=== PATIENT | male | born 1945 | race Caucasian/White ===

== ENCOUNTER 2017-10-16 23:36 | Emergency (ER) | payer MEDICARE, BC ==
[~2017-10-16] VITALS: Ht 165.1 cm; Wt 68.0 kg
[2017-10-16 23:39] VITALS: BP 206/91; PULSE 69; RESP 18; TEMP 98.8; O2SAT 100
[2017-10-17 03:44] VITALS: BP 185/87; PULSE 64; RESP 18; O2SAT 99
[2017-10-17] MEDS ORDERED: IBUP-1129 (03:47)
[2017-10-17] MEDS ORDERED: ASPI81TA23 PO (03:47)
[2017-10-17] MEDS ORDERED: NITROGLYCERIN 2% OINT 1 GM PACKET TOP ONE (04:30)
[2017-10-17] MEDS ORDERED: SODIUM CHLORIDE 0.9% FLUSH 10 ML FLUSH IVF PRN (04:30)
[2017-10-17] MEDS ORDERED: ASPIRIN 81 MG CHEW TAB PO ONE (04:30)
[2017-10-17] MEDS ORDERED: NITROGLYCERIN 0.4 MG SL 25 TABS/BTL SL ONE (04:30)
[2017-10-17 04:42] LABS: AUTOMATED NEUTROPHIL # 7.2 TH/MM3 (1.8-7.7); BASOPHIL % 0.3 % (0.0-2.0); EOSINOPHIL # 0.1 TH/MM3 (0-0.4); EOSINOPHIL % 0.9 % (0.0-4.0); HEMATOCRIT 40.1 % (39.0-51.0); MEAN CORPUSCULAR HEMOGLOBIN 32.4 PG (27.0-34.0); MEAN CORPUSCULAR HGB CONC 34.9 % (32.0-36.0); MEAN PLATELET VOLUME 7.6 FL (7.0-11.0); MONO % 10.7 % (0.0-8.0); NEUT % 77.1 % (16.0-70.0); PLATELET COUNT 238 TH/MM3 (150-450); RED BLOOD COUNT 4.31 MIL/MM3 (4.50-5.90); WHITE BLOOD COUNT 9.3 TH/MM3 (4.0-11.0)
--- NOTE | 2017-10-17 04:53 | PD ---
HPI Chief Complaint: Chest Pain Time Seen by Provider: 04:23 Travel History International Travel<30 days: No Contact w/Intl Traveler<30days: No Traveled to known affect area: No History of Present Illness HPI The patient is a 71 year old male who presents to the [facility] emergency department with a history of chest pain that began sometime on Sunday. It has been coming and going. The symptoms are vague because the patient has a history of memory problems from dementia. The patient's provides most of his history. The chest pain is in the center of his chest. It feels like being " hit with a baseball". He has had shortness of breath. The shortness of breath is worse with laying flat. He denies any prior history of myocardial infarction , DVT, or PE. He is currently visiting from [place]. He does not have a primary care physician locally. He does report having a history of atrial fibrillation, however he has been off of Coumadin for the last year and a half and off of sotalol for the last 3 years. The patient takes a low dose aspirin daily. On review of systems otherwise, the patient denies having any recent fevers, cough, congestion, neck pain, abdominal pain, vomiting, diarrhea, urinary symptoms, or neurologic symptoms. [facility] Past Medical History Narrative Medical The patient's past medical history is significant for atrial fibrillation, dementia, back pain, hip pain, prostate nodule s/p negative biopsy. Alzheimer's Disease: Yes (dementia) Atrial Fibrillation: Yes Diminished Hearing: No Tetanus Vaccination: Unknown Influenza Vaccination: No Past Surgical History Narrative Surgical The patient's past surgical history is significant for hip replacement left 5 years ago. Social History Alcohol Use: Yes (3x per week a beer) Tobacco Use: No Substance Use: No Allergies-Medications (Allergen,Severity, Reaction): Coded Allergies: No Known Allergies (Unverified , 10/17/17) Reported Meds & Prescriptions Reported Meds & Active Scripts Active Reported Motrin Ib (Ibuprofen) 200 Mg Tablet Aspirin EC (Aspirin) 81 Mg Tabdr 162 Mg PO DAILY Review of Systems Except as stated in HPI: all other systems reviewed are Neg General / Constitutional: No: Fever Eyes: No: Visual changes HENT: No: Headaches Cardiovascular: Positive: Chest Pain or Discomfort, Dyspnea on exertion Respiratory: Positive: Shortness of Breath, Orthopnea Gastrointestinal: No: Abdominal Pain Genitourinary: No: Dysuria Musculoskeletal: No: Pain Skin: No Rash Neurologic: No: Weakness Psychiatric: No: Depression Endocrine: No: Polydipsia Hematologic/Lymphatic: No: Easy Bruising Physical Exam Narrative General: The patient is a well-developed well-nourished male in no acute distress. Head and Neck exam: Head is normocephalic atraumatic. Eyes: EOMI, pupils are equal round and reactive to light. Nose: Midline septum with pink mucous membranes Mouth: Dentition unremarkable. Moist mucus membranes. Posterior oropharynx is not erythematous. No tonsillar hypertrophy. Uvula midline. Airway patent. Neck: No palpable lymphadenopathy. No nuchal rigidity. No thyromegaly. Cardiovascular: Regular rate and rhythm without murmurs, gallops, or rubs. No pulse deficit to the extremities on simultaneous auscultation and palpation of his radial artery. Lungs: Clear to auscultation bilaterally. No wheezes, rhonchi, or rales. Abdomen: Soft, without tenderness to palpation in all 4 quadrants of the abdomen. No guarding, rebound, or rigidity. Normal bowel sounds are audible. No tenderness on palpation of McBurney's point. Extremities: No clubbing, cyanosis, or edema. 2+ pulses in all 4 extremities. No calf tenderness on palpation. Back: No spinous process tenderness to palpation. No costovertebral angle tenderness to palpation. Neurologic Exam: Grossly nonfocal. Skin Exam: No rash noted. Intact skin that is warm and dry. Data Data Last Documented VS Vital Signs Date Time Temp Pulse Resp B/P (MAP) Pulse Ox O2 Delivery O2 Flow Rate FiO2 10/17/17 06:23 62 18 160/90 (113) 95 Room Air 10/16/17 23:39 98.8 Orders Orders B-Type Natriuretic Peptide (10/17/17 04:23) Ckmb (Isoenzyme) Profile (10/17/17 04:23) Complete Blood Count With Diff (10/17/17 04:23) Comprehensive Metabolic Panel (10/17/17 04:23) Magnesium (Mg) (10/17/17 04:23) Prothrombin Time / Inr (Pt) (10/17/17 04:23) Act Partial Throm Time (Ptt) (10/17/17 04:23) Troponin I (10/17/17 04:23) Lipase (10/17/17 04:23) Chest, Single Ap (10/17/17 04:23) Ecg Monitoring (10/17/17 04:23) Bilateral Bp Monitoring (10/17/17 04:23) Iv Access Insert/Monitor (10/17/17 04:23) Oximetry (10/17/17 04:23) Oxygen Administration (10/17/17 04:23) Aspirin Chew (Aspirin Chew) (10/17/17 04:30) Nitroglycerin 2% Oint (Nitroglycerin 2% (10/17/17 04:30) Sodium Chloride 0.9% Flush (Ns Flush) (10/17/17 04:30) Nitroglycerin Sl (Nitrostat Sl) (10/17/17 04:30) CKMB (10/17/17 04:15) CKMB% (10/17/17 04:15) Ct Pulmonary Angiogram (10/17/17 05:07) Aspirin Chew (Aspirin Chew) (10/17/17 05:45) Nitroglycerin 2% Oint (Nitroglycerin 2% (10/17/17 05:45) Nitroglycerin Sl (Nitrostat Sl) (10/17/17 05:45) Iohexol 350 Inj (Omnipaque 350 Inj) (10/17/17 05:54) Admit Order (Ed Use Only) (10/17/17 06:26) Labs Laboratory Tests Test 10/17/17 04:15 White Blood Count 9.3 TH/MM3 Red Blood Count 4.31 MIL/MM3 Hemoglobin 14.0 GM/DL Hematocrit 40.1 % Mean Corpuscular Volume 93.0 FL Mean Corpuscular Hemoglobin 32.4 PG Mean Corpuscular Hemoglobin Concent 34.9 % Red Cell Distribution Width 13.0 % Platelet Count 238 TH/MM3 Mean Platelet Volume 7.6 FL Neutrophils (%) (Auto) 77.1 % Lymphocytes (%) (Auto) 11.0 % Monocytes (%) (Auto) 10.7 % Eosinophils (%) (Auto) 0.9 % Basophils (%) (Auto) 0.3 % Neutrophils # (Auto) 7.2 TH/MM3 Lymphocytes # (Auto) 1.0 TH/MM3 Monocytes # (Auto) 1.0 TH/MM3 Eosinophils # (Auto) 0.1 TH/MM3 Basophils # (Auto) 0.0 TH/MM3 CBC Comment DIFF FINAL Differential Comment Prothrombin Time 10.4 SEC Prothromb Time International Ratio 1.0 RATIO Activated Partial Thromboplast Time 22.9 SEC Blood Urea Nitrogen 14 MG/DL Creatinine 0.88 MG/DL Random Glucose 99 MG/DL Total Protein 7.7 GM/DL Albumin 3.5 GM/DL Calcium Level 8.6 MG/DL Magnesium Level 2.2 MG/DL Alkaline Phosphatase 51 U/L Aspartate Amino Transf (AST/SGOT) 52 U/L Alanine Aminotransferase (ALT/SGPT) 19 U/L Total Bilirubin 0.8 MG/DL Sodium Level 136 MEQ/L Potassium Level 5.2 MEQ/L Chloride Level 104 MEQ/L Carbon Dioxide Level 26.4 MEQ/L Anion Gap 6 MEQ/L Estimat Glomerular Filtration Rate 86 ML/MIN Total Creatine Kinase 159 U/L Creatine Kinase MB 0.6 NG/ML Troponin I LESS THAN 0.02 NG/ML B-Type Natriuretic Peptide 107 PG/ML Lipase 85 U/L MDM Medical Decision Making Medical Screen Exam Complete: Yes Emergency Medical Condition: Yes Medical Record Reviewed: Yes Differential Diagnosis Acute coronary syndrome, versus pulmonary embolism, versus pneumonia, versus new onset congestive heart failure Narrative Course During the course of the patient's emergency department visit, the patient's history, examination, and differential diagnosis were reviewed with the patient. The patient was placed on a fiberline supervisor with oximetry and frequent blood pressure monitoring. The patient had IV access obtained and blood work sent for analysis. The patient had an EKG done on arrival. The patient's EKG reveals a sinus rhythm heart rate of 61, QRS duration is 137 ms, QTc 423 ms with a right bundle branch block noted. No acute ST segment elevation is noted. The patient was initially provided an additional 243 mg of aspirin p.o. Nitroglycerin sublingual 1 was administered, nitroglycerin 1 inch to the chest wall was applied. The patient's laboratory studies were reviewed and remarkable for A white count of 9.3, hemoglobin 14, platelets 238 with 77.1 neutrophils, monocytes 10.7, CMP is remarkable for a potassium of 5.2, GFR of 86, AST 52, cardiac enzymes within normal limits, BNP 107, lipase 85, PT 10.4, PTT 22.9. The patient's chest x- ray reveals no acute cardiopulmonary disease. A CTA to rule out PE was ordered. CTA reveals no point evidence of pulmonary embolism, coronary artery calcifications are present. The lungs are clear. The patient will be admitted to the chest pain center for rule out serial cardiac enzyme protocol followed by consideration of stress testing. The patient's results were discussed with the patient, including the plan of care. I explained that further testing and/ or monitoring is indicated based on the patient's history, examination, and/ or laboratory findings. Therefore, I recommended admission for additional evaluation. The patient expressed understanding and was agreeable with this plan. The patient was admitted to the hospital in stable condition and sent to a bed under the care of the chest pain center. Diagnosis Primary Impression: Chest pain, rule out acute myocardial infarction Admitting Information Admitting Physician Requests: Petra Prado MD Oct 17, 2017 04:53
[2017-10-17 05:01] LABS: ALBUMIN 3.5 GM/DL (3.4-5.0); ALT (GPT) 19 U/L (12-78); AST (GOT) 52 U/L (15-37); BICARBONATE 26.4 MEQ/L (21.0-32.0); BLOOD UREA NITROGEN 14 MG/DL (7-18); CALCIUM 8.6 MG/DL (8.5-10.1); CHLORIDE 104 MEQ/L (98-107); CREATININE 0.88 MG/DL (0.60-1.30); GLOMERULAR FILTRATION RATE 86 ML/MIN (>89); GLUCOSE,RANDOM 99 MG/DL (74-106); MAGNESIUM 2.2 MG/DL (1.5-2.5); SODIUM (NA) 136 MEQ/L (136-145)
[2017-10-17 05:02] LABS: ALKALINE PHOSPHATASE 51 U/L (45-117); TOTAL BILIRUBIN ADULT 0.8 MG/DL (0.2-1.0); TROPONIN I LESS THAN 0.02 NG/ML (0.02-0.05)
[2017-10-17 05:04] LABS: PROTHROMBIN TIME - PATIENT 10.4 SEC (9.8-11.6)
[2017-10-17 05:05] LABS: TOTAL PROTEIN 7.7 GM/DL (6.4-8.2)
--- NOTE | 2017-10-17 05:30 | RADRPT ---
EXAM DATE/TIME: 10/17/2017 04:48 [facility] COMPARISON: No previous studies available for comparison. INDICATIONS : Short of breath, tightness in chest. MEDICAL HISTORY : None. SURGICAL HISTORY : None. ENCOUNTER: Initial ACUITY: 1 day PAIN SCORE: 3/10 LOCATION: Bilateral chest FINDINGS: A single view of the chest demonstrates the lungs to be symmetrically aerated without evidence of mas s, infiltrate or effusion. The cardiomediastinal contours are unremarkable. Mild atherosclerotic berta nges are present in the aorta. Degenerative changes are noted in the left glenohumeral joint. Osseou s structures are intact. CONCLUSION: No acute disease. Gunnar Lyn MD on October 17, 2017 at 5:29 Board Certified Radiologist. This report was verified electronically.
[2017-10-17] MEDS ORDERED: NITROGLYCERIN 0.4 MG SL 25 TABS/BTL SL PRN (05:45)
[2017-10-17] MEDS ORDERED: ASPIRIN 81 MG CHEW TAB CHEW ONE (05:45)
[2017-10-17] MEDS ORDERED: NITROGLYCERIN 2% OINT 1 GM PACKET TOPICAL ONE (05:45)
[2017-10-17] MEDS ORDERED: IOHEXOL 350 MG/ML 10 ML VIAL (for RAD DIAG) IVCONTRAST ONE (05:54)
--- NOTE | 2017-10-17 06:10 | RADRPT ---
EXAM DATE/TIME: 10/17/2017 05:51 [facility] COMPARISON: CHEST SINGLE AP, October 17, 2017, 4:48. INDICATIONS : Chest pain and shortness of breath. IV CONTRAST: 75 cc Omnipaque 350 (iohexol) IV RADIATION DOSE: 12.12 CTDIvol (mGy) MEDICAL HISTORY : Dementia. SURGICAL HISTORY : None. ENCOUNTER: Initial ACUITY: 1 day PAIN SCALE: 4/10 LOCATION: Bilateral chest TECHNIQUE: Volumetric scanning of the chest was performed using a pulmonary embolism protocol MIP images were re constructed. Using automated exposure control and adjustment of the mA and/or kV according to patien t size, radiation dose was kept as low as reasonably achievable to obtain optimal diagnostic quality images. DICOM format image data is available electronically for review and comparison. Follow-up recommendations for detected pulmonary nodules are based at a minimum on nodule size and pa tient risk factors according to Fleischner Society Guidelines. FINDINGS: PULMONARY ARTERIES: No filling defects are seen in the pulmonary arteries through the segmental level. LUNGS: There is no consolidation or pneumothorax . No concerning pulmonary nodule is visualized. PLEURAE: There is no pleural thickening or pleural effusion. MEDIASTINUM: There is good visualization of the great vessels of the middle mediastinum. No evidence of mediastin al or hilar adenopathy/mass. Coronary artery calcifications are present. MUSCULOSKELETAL: Within normal limits for patient age. MISCELLANEOUS: The visualized upper abdominal organs demonstrate no acute abnormality. CONCLUSION: 1. No evidence of pulmonary embolism. 2. Coronary artery calcifications are present. 3. The lungs are clear. Gunnar Lyn MD on October 17, 2017 at 6:07 Board Certified Radiologist. This report was verified electronically.
[2017-10-17 06:23] VITALS: BP 160/90; PULSE 62; RESP 18; O2SAT 95
[2017-10-17] MEDS ORDERED: SODIUM CHLORIDE 0.9% FLUSH 10 ML FLUSH IV FLUSH PRN (07:00)
[2017-10-17] MEDS ORDERED: ACETAMINOPHEN 500 MG CPLT PO PRN (07:00)
[2017-10-17] MEDS ORDERED: ONDANSETRON HCL 4 MG/2 ML VIAL IV PUSH PRN (07:00)
[2017-10-17 08:59] LABS: TROPONIN I LESS THAN 0.02 NG/ML (0.02-0.05)
[2017-10-17] MEDS ORDERED: SODIUM CHLORIDE 0.9% FLUSH 10 ML FLUSH IV FLUSH SCH (09:00)
[2017-10-17] MEDS ORDERED: LIDOCAINE VISCOUS 2% SOLN 15 ML UDC PO ONE (09:30)
[2017-10-17] MEDS ORDERED: amLODIPine BESYLATE 5 MG TAB PO ONE (09:30)
[2017-10-17] MEDS ORDERED: ALUMINUM/MAGNESIUM/SIMETH 30 ML CUP PO ONE (09:30)
[2017-10-17] MEDS ORDERED: ATROPINE/SCOPOLAM/HYOSCYAM/PB ELIXIR 10 ML CUP PO ONE (10:00)
[2017-10-17 10:25] VITALS: BP 123/76; PULSE 80; RESP 15; O2SAT 98
--- NOTE | 2017-10-17 10:27 | HHI.HP ---
HPI Primary Care Physician No Primary Care Physician Chief Complaint Chest pain History of Present Illness This is a 71-year-old male with history of paroxysmal atrial fibrillation and denies CAD, hypertension, hyperlipidemia, and diabetes with a complaint of chest discomfort. Patient states that while he was walking on the beach yesterday he developed a mild discomfort in the center of his chest. Continue to worsen as the day went on. States discomfort is somewhat still there. It is nowhere near as bad . Denies associated shortness of breath, nausea, or diaphoresis. Has not had a discomfort like this in the past. Cannot recall prior cardiac workup but also states he has memory loss issues. States he is here for 3 months from [place]. Review of Systems General: Patient denies fevers, chills recent, and recent travel HEENT: Patient denies headache, sore throat, difficulty swallowing. Cardiovascular: Has the chest discomfort as mentioned above. Denies sensation of heart beating rapidly or irregularly. No syncope. Denies diaphoresis. Respiratory: Denies shortness of breath or inspirational chest discomfort. Denies coughing wheezing or hemoptysis. GI: Patient denies nausea, vomiting, diarrhea, abdominal pain, bloody stools. Musculoskeletal: Patient denies joint pain or edema. Denies calf pain or edema. Neurovascular: Patient denies numbness, tingling, weakness in extremities. Denies headache. Endocrine: Denies polyuria and polydipsia. Hematologic: Denies easy bruising. Skin: Denies rash or itching. Past Family Social History Allergies: Coded Allergies: No Known Allergies (Unverified , 10/17/17) Past Medical History Paroxysmal atrial fibrillation. Denies hypertension, hyperlipidemia, diabetes, and known CAD. Past Surgical History Hip replacement 5 years ago. Reported Medications Reported Meds & Active Scripts Active Reported Motrin Ib (Ibuprofen) 200 Mg Tablet Aspirin EC (Aspirin) 81 Mg Tabdr 162 Mg PO DAILY Active Ordered Medications Current Medications Medications (Trade) Dose Ordered Sig/Ernesto Route Start Time Stop Time Status Last Admin (Nitrostat Sl) 0.4 mg Q5M PRN SL 10/17/17 05:45 (NS Flush) 2 ml UNSCH PRN IV FLUSH 10/17/17 07:00 (NS Flush) 2 ml BID IV FLUSH 10/17/17 09:00 10/17/17 09:24 (Tylenol) 500 mg Q4H PRN PO 2/21/18 07:00 (Zofran Inj) 4 mg Q6H PRN IV PUSH 10/17/17 07:00 Family History He is not aware of his family medical history. Social History Non-smoker. Has an occasional beer. Denies illicit drugs. He is . Physical Exam Vital Signs Vital Signs Date Time Temp Pulse Resp B/P (MAP) Pulse Ox O2 Delivery O2 Flow Rate FiO2 10/17/17 06:23 62 18 160/90 (113) 95 Room Air 10/17/17 03:44 64 18 185/87 (119) 99 Room Air 10/17/17 03:44 64 98 Room Air 10/16/17 23:39 98.8 69 18 206/91 (129) 100 Physical Exam GENERAL: This is a well-nourished, well-developed patient, in no apparent distress. Patient speaks in clear complete sentences. Patient is pleasant. HEENT: Head is atraumatic and normocephalic. Neck is supple without lymphadenopathy and trachea is midline. No JVD or carotid bruits. CARDIOVASCULAR: Regular rate and rhythm without murmurs, gallops, or rubs. RESPIRATORY: Clear to auscultation. Breath sounds equal bilaterally. No wheezes , rales, or rhonchi. Chest wall is nontender. No use of accessory muscles. GASTROINTESTINAL: Abdomen is nontender, nondistended. Abdomen soft. No obvious pulsatile mass or bruit. No CVA tenderness. Strong femoral pulses bilaterally. Normal bowel sounds in all quadrants. MUSCULOSKELETAL: Patient is moving upper and lower extremities freely. No calf tenderness or edema, no Homans sign. Strong pulses in upper and lower extremities. NEUROLOGICAL: Patient is alert and oriented. Cranial nerves 2-12 are grossly intact. No focal deficits and speech is clear. SKIN: No rash and turgor is normal. Laboratory Laboratory Tests Test 10/17/17 04:15 10/17/17 07:20 White Blood Count 9.3 Red Blood Count 4.31 Hemoglobin 14.0 Hematocrit 40.1 Mean Corpuscular Volume 93.0 Mean Corpuscular Hemoglobin 32.4 Mean Corpuscular Hemoglobin Concent 34.9 Red Cell Distribution Width 13.0 Platelet Count 238 Mean Platelet Volume 7.6 Neutrophils (%) (Auto) 77.1 Lymphocytes (%) (Auto) 11.0 Monocytes (%) (Auto) 10.7 Eosinophils (%) (Auto) 0.9 Basophils (%) (Auto) 0.3 Neutrophils # (Auto) 7.2 Lymphocytes # (Auto) 1.0 Monocytes # (Auto) 1.0 Eosinophils # (Auto) 0.1 Basophils # (Auto) 0.0 CBC Comment DIFF FINAL Differential Comment Prothrombin Time 10.4 Prothromb Time International Ratio 1.0 Activated Partial Thromboplast Time 22.9 Blood Urea Nitrogen 14 Creatinine 0.88 Random Glucose 99 Total Protein 7.7 Albumin 3.5 Calcium Level 8.6 Magnesium Level 2.2 Alkaline Phosphatase 51 Aspartate Amino Transf (AST/SGOT) 52 Alanine Aminotransferase (ALT/SGPT) 19 Total Bilirubin 0.8 Sodium Level 136 Potassium Level 5.2 Chloride Level 104 Carbon Dioxide Level 26.4 Anion Gap 6 Estimat Glomerular Filtration Rate 86 Total Creatine Kinase 159 65 Creatine Kinase MB 0.6 Troponin I LESS THAN 0.02 LESS THAN 0.02 B-Type Natriuretic Peptide 107 Lipase 85 Result Diagram: 10/17/17 0415 10/17/17 0415 Imaging Last [address] Angiography 10/17/17 0507 Signed Impressions: Service Date/Time: Tuesday, October 17, 2017 05:51 - CONCLUSION: 1. No evidence of pulmonary embolism. 2. Coronary artery calcifications are present. 3. The lungs are clear. Gunnar Lyn MD Chest X-Ray 10/17/17 0423 Signed Impressions: Service Date/Time: Tuesday, October 17, 2017 04:48 - CONCLUSION: No acute disease. Gunnar Lyn MD Course First 2 EKGs are sinus rhythm, right bundle branch block without significant ST segment depressions or elevations. Caprini VTE Risk Assessment Caprini VTE Risk Assessment: Mod/High Risk (score >= 2) Caprini Risk Assessment Model Point Value = 1 Point Value = 2 Point Value = 3 Point Value = 5 Age 41-60 Minor surgery BMI > 25 kg/m2 Swollen legs Varicose veins or History of unexplained or recurrent spontaneous Oral contraceptives or hormone replacement Sepsis (< 1 month) Serious lung disease, including pneumonia (< 1 month) Abnormal pulmonary function Acute myocardial infarction Congestive heart failure (< 1 month) History of inflammatory bowel disease Medical patient at bed rest Age 61-74 Arthroscopic surgery Major open surgery (> 45 min) Laparoscopic surgery (> 45 min) Malignancy Confined to bed (> 72 hours) Immobilizing plaster cast Central venous access Age >= 75 History of VTE Family history of VTE Factor V Leiden Prothrombin [id number] Lupus anticoagulant Anticardiolipin antibodies Elevated serum homocysteine Heparin-induced thrombocytopenia Other congenital or acquired thrombophilia Stroke (< 1 month) Elective arthroplasty Hip, pelvis, or leg fracture Acute spinal cord injury (< 1 month) Prophylaxis Regimen Total Risk Factor Score Risk Level Prophylaxis Regimen 0-1 Low Early ambulation 2 Moderate Order ONE of the following: *Sequential Compression Device (SCD) *Heparin 5000 units SQ BID 3-4 Higher Order ONE of the following medications: *Heparin 5000 units SQ TID *Enoxaparin/Lovenox 40 mg SQ daily (WT < 150 kg, CrCl > 30 mL/min) *Enoxaparin/Lovenox 30 mg SQ daily (WT < 150 kg, CrCl > 10-29 mL/min) *Enoxaparin/Lovenox 30 mg SQ BID (WT < 150 kg, CrCl > 30 mL/min) AND/OR *Sequential Compression Device (SCD) 5 or more Highest Order ONE of the following medications: *Heparin 5000 units SQ TID (Preferred with Epidurals) *Enoxaparin/Lovenox 40 mg SQ daily (WT < 150 kg, CrCl > 30 mL/min) *Enoxaparin/Lovenox 30 mg SQ daily (WT < 150 kg, CrCl > 10-29 mL/min) *Enoxaparin/Lovenox 30 mg SQ BID (WT < 150 kg, CrCl > 30 mL/min) AND *Sequential Compression Device (SCD) Assessment and Plan Assessment and Plan * Chest pain: Patient has had first 2 sets of cardiac enzymes and EKGs for ruling out purposes. He was given a GI cocktail and is feeling better. He was seen by Dr. Home Obrien of cardiology in the chest pain center and will undergo a Carlos Eduardo protocol ETT. He will be discharged home with a stress test was nonischemic with instructions to follow-up with PCP and to return to ED for interval issues. Patient is stable at this time. He is agreeable to this plan. Zhang Lopez Oct 17, 2017 10:27
--- NOTE | 2017-10-17 10:30 | HHI.DCPOC ---
Discharge Care Plan Diagnosis: (1) Chest pain, atypical Goals to Promote Your Health * To prevent worsening of your condition and complications * To maintain your health at the optimal level Directions to Meet Your Goals Take your medications as prescribed Follow your dietary instruction Follow activity as directed Keep your appointments as scheduled Take your immunizations and boosters as scheduled If your symptoms worsen call your PCP, if no PCP go to Urgent Care Center or Emergency Room Smoking is Dangerous to Your Health. Avoid second hand smoke Call the 24-hour hour crisis hotline for domestic abuse at Zhang Lopez Oct 17, 2017 10:30
--- NOTE | 2017-10-17 15:55 | EKG ---
Date Performed: 10/16/2017 Time Performed: 23:49:43 PTAGE: 71 years EKG: Sinus rhythm RIGHT BUNDLE BRANCH BLOCK ABNORMAL ECG NO PREVIOUS TRACING DOCTOR: Home Obrien Interpretating Date/Time 10/17/2017 15:53:23
--- NOTE | 2017-10-17 15:57 | EKG ---
Date Performed: 10/17/2017 Time Performed: 07:22:45 PTAGE: 71 years EKG: SINUS BRADYCARDIA RIGHT BUNDLE BRANCH BLOCK ABNORMAL ECG PREVIOUS TRACING : 10/16/2017 23.49 Since previous tracing, no significant change noted DOCTOR: Home Obrien Interpretating Date/Time 10/17/2017 15:54:40
--- NOTE | 2017-10-17 15:58 | TR ---
Date Performed: 10/17/2017 Time Performed: 09:53:51 DOCTOR: Home Obrien DRUG LIST: CLINICAL HISTORY: REASON FOR TEST: Chest pain REASON FOR ENDING: OBSERVATION: CONCLUSION: DELMIS PROTOCOL CONVERTED TO MANUAL AT 8 MINUTES 30 SECONDS. NO CP. TEST STOPPED AFTE R REACHING GOAL HR SECONDARY TO SOB AND LEG FATIGUE.Maximum FJ=214 % Max HR Achieved=85.0% Total Exer cise Time=10:01 COMMENTS: Patient exercised using the Delmis protocol. No electrocardiographic changes were seen to suggest ischemia. Hemodynamic response to exercise was normal. No significant arrhythmia was prese nt.
== END 2017-10-17 12:08 | disposition home or self-care (01) ==
LOC: NEPC 23:36 → NEDA 10-17 06:28 → UNDOADMOB 10-17 06:28
DX: R07.9 Chest pain, unspecified (principal); R06.02 Shortness of breath; R94.31 Abnormal electrocardiogram [ECG] [EKG]
CPT/HCPCS: 71045; 71275; 80053; 82550; 82552; 83690; 83735; 83880; 84484; 85025; 85610; 85730; 93005; 93017; 99285; Q9967